=== PATIENT | female | born 1980 | race American Indian/Alaskan Native ===

== ENCOUNTER 2019-06-08 13:51 | Emergency (ER) | payer OTHER ==
[2019-06-08 14:13] VITALS: BP 130/88
[2019-06-08 14:33] LABS: Basophils # (Auto) 0.1 K/mm3 (0.0-0.1); Basophils % (Auto) 0.3 % (0.0-1.8); Eosinophils # (Auto) 0.1 K/mm3 (0.0-0.4); Eosinophils % (Auto) 0.7 % (0.0-4.3); Hematocrit 42.2 % (30.3-42.9); Hemoglobin 14.3 gm/dl (10.1-14.3); Lymphocytes # (Auto) 1.6 K/mm3 (1.2-5.4); Lymphocytes % (Auto) 8.7 % (13.4-35.0); Mean Corpuscular HGB Conc 34 % (30-34); Mean Corpuscular Volume 94 fl (79-97); Monocytes # (Auto) 0.9 K/mm3 (0.0-0.8); Monocytes % (Auto) 5.1 % (0.0-7.3); Platelet Count 309 K/mm3 (140-440); Red Blood Count 4.48 M/mm3 (3.65-5.03); Red Cell Distribution Width 13.5 % (13.2-15.2)
[2019-06-08 14:59] LABS: BUN/Creatinine Ratio 19; Blood Urea Nitrogen 13 mg/dL (7-17); Hemolysis Index 11
[2019-06-08] MEDS ORDERED: NORCO 5/325 PO ONE (18:03)
--- NOTE | 2019-06-08 18:14 | Emergency Department Report ---
HPI - General Chief Complaint: Chest Pain Time Seen by Provider: 06/08/19 17:31 - HPI HPI: 39 yo to ER with cp for several days. reports sob. Very dramatic presentation with her 3 older children. VSS. no fever. ambulatory and nontoxic cig/ thc rx none psh ovarian torsion ED Past Medical Hx - Past Medical History Previous Medical History?: No - Surgical History Past Surgical History?: Yes Additional Surgical History: ovarian surgery, tubal ligation - Family History Family history: no significant - Social History Smoking Status: Current Every Day Smoker Substance Use Type: Marijuana ED Review of Systems ROS: Stated complaint: CHEST PAIN Other details as noted in HPI Comment: All other systems reviewed and negative Physical Exam - Physical Exam Vital Signs: Vital Signs 06/08/19 14:10 Temperature 97.8 F Pulse Rate 83 Respiratory 19 Rate Blood Pressure 130/88 [Left] O2 Sat by Pulse 100 Oximetry Physical Exam: alert and oriented s1s2 lungs cta no edema no jvd abd snt ED Course Vital Signs 06/08/19 14:10 Temperature 97.8 F Pulse Rate 83 Respiratory 19 Rate Blood Pressure 130/88 [Left] O2 Sat by Pulse 100 Oximetry ED Medical Decision Making - Lab Data Result diagrams: 06/08/19 14:21 06/08/19 14:21 - EKG Data EKG shows normal: sinus rhythm Rate: normal - EKG Data When compared to previous EKG there are: no significant change - Radiology Data Radiology results: report reviewed, image reviewed - Medical Decision Making Labs 06/08/19 06/08/19 06/08/19 14:21 14:21 17:15 WBC 18.5 H RBC 4.48 Hgb 14.3 Hct 42.2 MCV 94 MCH 32 MCHC 34 RDW 13.5 Plt Count 309 Lymph % (Auto) 8.7 L [place] % (Auto) 5.1 Eos % (Auto) 0.7 Baso % (Auto) 0.3 Lymph # 1.6 [place] # 0.9 H Eos # 0.1 Baso # 0.1 Seg Neutrophils % 85.2 H Seg Neutrophils # 15.7 H Sodium 139 Potassium 4.1 Chloride 104.2 Carbon Dioxide 24 Anion Gap 15 BUN 13 Creatinine 0.7 Estimated GFR > 60 BUN/Creatinine Ratio 19 Glucose 102 H Calcium 9.0 Troponin T < 0.010 < 0.010 Vital Signs 07/23/19 14:10 Temperature 97.8 F Pulse Rate 83 Respiratory 19 Rate Blood Pressure 130/88 [Left] O2 Sat by Pulse 100 Oximetry labs noted given wbc - ua ordered pt left AMA - would not give urine specimen ambulatory on dc and in NAD - Differential Diagnosis ro acs Critical care attestation.: If time is entered above; I have spent that time in minutes in the direct care of this critically ill patient, excluding procedure time. ED Disposition Clinical Impression: Chest pain Disposition: DC-07 LEFT AGAINST MED ADVICE Is pt being admited?: No Condition: Stable Referrals: GEOFFREY ORTIZ MD [Primary Care Provider] - 3-5 Days Forms: AMA Form Time of Disposition: 19:30
--- NOTE | 2019-06-08 18:52 | XRay Report ---
CHEST 2 VIEWS INDICATION / CLINICAL INFORMATION: chest pain. COMPARISON: None available. FINDINGS: SUPPORT DEVICES: None. HEART / MEDIASTINUM: No significant abnormality. LUNGS / PLEURA: No significant pulmonary or pleural abnormality. No pneumothorax. ADDITIONAL FINDINGS: No significant additional findings. IMPRESSION: 1. No acute findings. Signer Name: Nathan Rosenthal MD Signed: 06/08/2019 6:48 PM Workstation Name: [id number]
== END 2019-06-08 19:25 | disposition left against medical advice (07) ==
LOC: ED 13:51
DX: R07.9 Chest pain, unspecified (principal); F17.200 Nicotine dependence, unspecified, uncomplicated; F12.90 Cannabis use, unspecified, uncomplicated; Z98.51 Tubal ligation status; Z98.890 Other specified postprocedural states
CPT/HCPCS: 36415; 71046; 80048; 84484; 85025; 93005; 93010; 99284